=== PATIENT | male | born 1995 | race Caucasian/White ===

== ENCOUNTER 2017-04-22 20:00 | Emergency (ER) | payer OTHER ==
[~2017-04-22] VITALS: Ht 172.7 cm; Wt 126.3 kg
[~2017-04-22 20:00] MED LIST: ABILIFY2 MG PO; ADDERALL XR 2020 MG PO; ADDERALL XR20 MG PO; ADDERALL10 MG PO; ADDERALL30 MG PO; ALBUTEROL SULF8.5 GM IH; ALBUTEROL17 G1 IH; ALBUTEROL17 GM IH; BEE WITH C1 EACH PO; CATAPRES0.1 MG PO; DDAVP0.1 MG PO; GLUCOPHAGE1000 MG PO; IBUPROFEN600 MG PO; METFORMIN HCL500 MG PO; MINOCYCLINE HC100 M1 PO; PROVENTIL,2.5 MG/0.5 IH; PROZAC20 MG PO; PULMICORT FLE180 MCG IH; PULMICORT FLEX90 MCG IH; TYLENOL ARTHRI650 MG PO; ZOFRAN4 MG PO; ZYRTEC10 M3 PO
[2017-04-22 22:19] VITALS: BP 135/95
== END 2017-04-22 22:20 | disposition home or self-care (01) ==
LOC: EME 20:00
DX: S70.312A Abrasion, left thigh, initial encounter (principal); S70.311A Abrasion, right thigh, initial encounter; S80.812A Abrasion, left lower leg, initial encounter; V49.40XA Driver injured in collision with unspecified motor vehicles in traffic accident, initial encounter; Y92.481 Parking lot as the place of occurrence of the external cause; E11.9 Type 2 diabetes mellitus without complications; Z79.84 Long term (current) use of oral hypoglycemic drugs; J45.909 Unspecified asthma, uncomplicated
CPT/HCPCS: 99281; 99283